=== PATIENT | male | born 1995 | race Caucasian/White ===

== ENCOUNTER → 2017-02-14 | Outpatient (CLI) | payer OTHER ==
[2015-06-17 20:10] VITALS: BP 121/69
--- NOTE | 2017-02-14 16:08 | KCIC ---
3 view left knee HISTORY: Left knee pain and swelling for 3 weeks. Pain medial and lateral. FINDINGS: No acute fracture. No bone lesion or bone destruction. Joint spaces are intact. No significant soft tissue abnormality. IMPRESSION: No acute radiographic abnormality. Electronically signed by: Swapnil Bonner MD (02/14/2017 4:05 PM) [id number]
== END | disposition home or self-care (01) ==
LOC: KCIC 15:25
PROVIDERS: ATTEND Nurse Practitioner Family
DX: M25.562 Pain in left knee (principal)
CPT/HCPCS: 73562

== ENCOUNTER 2017-05-28 02:46 | Emergency (ER) | payer OTHER ==
[2017-05-28 04:43] LABS: INFLUENZA A PATIENT NEGATIVE (NEGATIVE); INFLUENZA B PATIENT NEGATIVE (NEGATIVE)
[2017-05-28 04:44] LABS: OBC FLU VALID
== END 2017-05-28 04:56 | disposition home or self-care (01) ==
LOC: ER 02:46
DX: B34.9 Viral infection, unspecified (principal)
CPT/HCPCS: 87804; 87804-59; 99284